=== PATIENT | male | born 1980 | race Caucasian/White ===

== ENCOUNTER → 2019-11-30 11:12 | Outpatient (CLI) | payer BC, SELFPAY ==
--- NOTE | 2019-11-30 11:19 | US_ITS ---
Study: Scrotal ultrasound Clinical history lump superior to right testicle Prior study: None. PROCEDURE: Real-time grayscale and color flow imaging of the scrotum and contents was performed. FINDINGS: The right testicle is normal in size, contour, and echogenicity and measures 4.5 x 4.0 x 2.3 cm. Right testicular echotexture is homogeneous. Right testicular vascularity is normal. The right epididymal head measures 1.0 x 0.7 x 0.8 cm. There is a right epididymal head cyst measuring 3 x 3 x 2 mm. The left testicle is homogeneous in echogenicity and measures 4.1 x 3.1 x 2.2 cm. Left testicular vascularity appears normal. The left epididymal head measures 1.2 x 1.5 x 1.0 cm. Left epididymal head vascularity is normal. US/Testicular with Arterial Flow IMPRESSION: Right epididymal head cyst measuring 3 x 3 x 2 mm. The left and right testicles and left epididymal head appear normal. There is no hydrocele or varicocele. Electronically Signed: Henry Braun MD at 17:28 EST , Service support ,
== END ==
PROVIDERS: PCP Family Medicine; Referring Provider Family Medicine; Visit Provider Family Medicine
DX: N50.89 Other specified disorders of the male genital organs (principal)
CPT/HCPCS: 76870; 93976